=== PATIENT | male | born 1950 | race Caucasian/White ===

== ENCOUNTER 2016-09-23 09:06 | Emergency (ER) | payer OTHER, BC ==
[2016-09-23 09:27] VITALS: RESP 16; TEMP 98.1
[2016-09-23] MEDS ORDERED: IBUPROFEN 600 MG TAB PO ONE (09:28)
[2016-09-23] MEDS ORDERED: traMADol 50 MG TAB PO ONE (09:29)
--- NOTE | 2016-09-23 09:34 | EDPHY ---
H & P Time Seen by Provider: 09/23/16 09:16 HPI/ROS: This morbidly obese patient was driven by private vehicle by his son for evaluation of left knee injury. He explains that when he got out of his car yesterday plan to his foot pushed off felt immediate sharp 10/10 posterior knee pain that then radiated quickly or throughout the whole knee. This occurred yesterday evening and he had difficulty sleeping due to the pain last night only getting to 3 hours of sleep. He is ambulating with a cane with some difficulty due to the pain with ambulation. He did not try any medications for the pain prior to arrival and notes no other exacerbating factors. He has never had this pain before. He explains that usually when he gets out of a car he puts both feet on the ground prior to standing up and admits that he exited the car planting only left foot and pushing up and thinks that his weight verses the knee contributed to the injury. He thinks there is some swelling associated with it. ROS: Constitutional: No fevers or chills. Musculoskeletal: No other injuries Neuro: No numbness or tingling Cardiovascular: No pallor, plethora or other discoloration to the affected lower extremity. 5 point ROS is otherwise negative. Past Medical/Surgical History: Morbid obesity. Otherwise healthy Social History: No alcohol. No drug use. No history of addiction. Smoking Status: Former smoker (Quit 5 years ago) Physical Exam: Physical Exam Vital signs are normal. General: Pleasant morbidly obese (over 300 lb) pleasant male No acute distress Eyes: Pupils equal and react to light. Extraocular motions are intact. Lungs: No respiratory distress. Cardiac: Brisk capillary refill is intact throughout. Pulses are 2+ and symmetric in the affected extremity. Skin: No rash or pallor. Extremities: Atraumatic normal except for left knee Left knee: Patient has posterior knee tenderness-moderate to exquisite perhaps mild circumferential swelling that is difficult to ascertain because of the degree of obesity., mild tenderness inferior to the patella. No significant medial or lateral tenderness. I appreciate no obvious laxity on Oliver's exam could or with varus or valgus stress. These maneuvers do not seem to significantly change his pain either. Neuro: Alert and oriented x3 with no sensorimotor deficits. Initial differential diagnosis: Ligament sprain rupture, meniscal injury, tibial plateau fracture, muscle strain, DJD Constitutional: Initial Vital Signs Temperature (C) 36.7 C 09/23/16 09:10 Heart Rate 75 09/23/16 09:10 Respiratory Rate 16 09/23/16 09:10 Blood Pressure 155/109 H 09/23/16 09:10 O2 Sat (%) 91 L 09/23/16 09:10 O2 Delivery Mode Room Air Allergies/Adverse Reactions: No Known Allergies Allergy (Unverified 09/23/16 09:24) Home Medications: Medication Instructions Recorded Ibuprofen [Motrin (*)] 600 mg PO Q6 PRN #30 tab 09/23/16 traMADol [Ultram 50 mg (*)] 50 - 100 mg PO Q4 PRN #20 tab 09/23/16 MDM/Departure - MDM Imaging Results: Imaging Impressions Knee X-Ray 09/23/16 09:28 Impression: 1. Moderate tricompartmental osteoarthritis, worst in the patellofemoral joint. 2. No definite fracture. Imaging: I viewed and interpreted images myself Medications Given: Discontinued Medications Ibuprofen (Motrin) 600 mg PO EDNOW ONE Stop: 09/23/16 09:29 Last Admin: 09/23/16 09:41 Dose: 600 mg Tramadol HCl (Ultram) 100 mg PO EDNOW ONE Stop: 09/23/16 09:30 Last Admin: 09/23/16 09:40 Dose: 100 mg ED Course/Re-evaluation: Ibuprofen and tramadol p.o. I discussed the knee x-ray after my read with Dr. Hinton to confirm he appreciates no evidence of plateau fracture and he does not. Findings of DJD present in the small joint effusion. Discussion: Given the mechanism of the injury, location of the pain in the joint effusion I suspect the patient may have a PCL injury and I counseled her regarding this. This exam is difficult due to his body habitus but I do not appreciate any obvious laxity on exam. Other considerations differential diagnosis would be a meniscal injury, DJD with effusion and strain or occult fracture the this is unlikely. Patient is placed in a knee immobilizer by our tech injury with my assistance and patient is given crutches. I instructed him on plan to follow up with Orthopedics sometime within the next 2-5 days for further evaluation. - Depart Disposition: Home, Routine, Self-Care Clinical Impression: Knee effusion, left Knee injury Qualifiers: Encounter type: initial encounter Laterality: left Qualified Code(s): S89.92XA - Unspecified injury of left lower leg, initial encounter Condition: Good Instructions: Knee Sprain (ED), Crutch Instructions (ED) Additional Instructions: Diagnosis: 1. Knee sprain 2. Knee effusion Based on your exam x-ray, it is likely that you have a ligament injury causing your pain. You may have injured the PCL ligament. Plan: Ice 20 minutes at a time 3 times a day or more for the next few days Elevate the leg when able Joshua wrap Cane or crutches for ambulation Ibuprofen, Tylenol and tramadol for pain control. No driving, or work on tramadol Call Dr. Muñiz, orthopedic physician to arrange follow-up appointment for sometime within the next 2-5 days for further evaluation. Prescriptions: Ibuprofen [Motrin (*)] 600 mg PO Q6 PRN #30 tab PRN Reason: Pain traMADol [Ultram 50 mg (*)] 50 - 100 mg PO Q4 PRN #20 tab PRN Reason: breakthrough pain Referrals: Kota Mullins MD [Primary Care Provider] - As per Instructions Brendan Muñiz MD [Medical Doctor] - As per Instructions Destiney Jacobson MD [Medical Doctor] - As per Instructions
[2016-09-23 11:24] VITALS: BP 150/97; PULSE 74; O2SAT 92
== END 2016-09-23 11:05 | disposition home or self-care (01) ==
LOC: CED 09:06
DX: S89.92XA Unspecified injury of left lower leg, initial encounter (principal); Z87.891 Personal history of nicotine dependence; X58.XXXA Exposure to other specified factors, initial encounter
CPT/HCPCS: 73564; 99283; L1830

== ENCOUNTER → 2018-02-28 | Outpatient (CLI) | payer OTHER, BC | LOC: CIMAGING 13:58 | PROVIDERS: ATTEND Family Medicine | DX: J40 Bronchitis, not specified as acute or chronic (principal); R07.81 Pleurodynia; R10.12 Left upper quadrant pain | CPT/HCPCS: 71046-PO; 74019-PO ==

== ENCOUNTER → 2018-07-05 | Outpatient (CLI) | payer OTHER, BC | LOC: CIMAGING 09:30 ==